=== PATIENT | male | born 1955 | race Caucasian/White ===

== ENCOUNTER 2016-06-29 10:30 | Day surgery (SDC) | payer BC, OTHER ==
[~2016-06-29 10:30] MED LIST: CHONDR SU A NA/HYALUR INTRAOC KIT (SURGICARE) ONE; KETOROLAC TROMETHAMINE 0.45% 4 DROP/0.4 ML DROPERETTE OD PRN; LIDOCAINE 1% INJ-PF (10 MG/ML) 30 ML SDV ONE; MIDAZOLAM 2 MG/2 ML INJ ONE; PHENYLEPHRINE/KETOROLAC 1%-0.3% 4 ML VIAL ONE; TRYPAN BLUE 0.06 % OPH SOLN 0.5 ML DISP.SYRIN ONE
[2016-06-29] MEDS: TROPICAMIDE 1% OPH SOLN 3 ML OD PRN ×3 (10:56→11:17)
[2016-06-29] MEDS: BESIFLOXACIN HCL 0.6% OPH SUSP 5 ML BOTTLE OD PRN ×4 (10:56→12:40)
[2016-06-29] MEDS: CYCLOPENTOLATE 0.2%/PHENYLEPHRINE 1% OPH SOLN 2 ML OD PRN ×3 (10:56→11:17)
[2016-06-29] MEDS: TETRACAINE HCL 0.5% OPH SOLN 2 ML OD PRN ×3 (10:57→11:58)
--- NOTE | 2016-06-29 19:08 | [facility] OPERATIVE REPORT E ---
[facility] Operative Report NAME: SAMMIE NEWMAN AGE: 61Y DATE OF SURGERY: 06/29/2016 ROOM: PREOPERATIVE DIAGNOSIS: Age-related cataract of the right eye. POSTOPERATIVE DIAGNOSIS: Age-related cataract of the right eye. OPERATION: Complex cataract extraction with use of a Toric IOL and Trypan blue dye to stain the anterior capsule due to dense cortical spoking. SURGEON: TACOS PIÑA M.D. ANESTHESIA: Topical. PROCEDURE: After obtaining appropriate consent, the patient's right eye was prepped and draped in sterile fashion as well as the surgeon in a sterile manner and cataract surgery was started. First a paracentesis blade was used to make a small side-port incision. Viscoelastic was used to inflate the anterior chamber. Next a 2.4 mm incision was made with the paracentesis blade. A continuous capsulorrhexis incision was made using a cystotome and Utrata forceps. Following this hydrodissection was carried out to make the lens fully loose and mobile and it was rotated 90 degrees. Following this, a nozocz-wqk-trffbra technique was used to phacoemulsification the lens with a CDE of 12.67. The remaining cortex was removed with irrigation/aspiration. Provisc was instilled into the capsular bag to inflate the bag. A SN6AT4, 15.5 diopter lens rotated to 5 [address] was [address]. The remaining viscoelastic material was removed with irrigation/aspiration. Following this, a 10-0 nylon suture was used to close the incision and it was found to be watertight. Vigamox was instilled in the eye and a protective shield was placed over the eye. The patient returned to the postoperative recovery in stable condition. ADDENDUM: Prior to making to capsulorhexis, Trypan blue dye was instilled to stain the anterior capsule due to dense cortical spoking. Prior to the patient lying on the operating room table, the 0 to 180 degree axis was marked with a corneal marker. Prior to insertion of the lens, the 5-degree axis was marked with a corneal marker. The lens was injected into the proper alignment at the 5-degree vishnu. DICTATING PHYSICIAN: TACOS PIÑA M.D. [id number] PHY#: [id number] ID: [id number] JOB#: [id number] ACCT: [id number] cc:TACOS PIÑA M.D. >
--- NOTE | 2016-06-29 19:08 | DISCHARGE SUMMARY E ---
Discharge Summary NAME: SAMMIE NEWMAN : 1955 AGE: 61Y ADMITTED: 06/29/2016 DISCHARGED: HISTORY AND HOSPITAL COURSE: This is a 61-year-old male who underwent complex cataract extraction with insertion of a Toric IOL. Diagnosis one is age-related cataract of the right eye with dense cortical spoking requiring Trypan blue dye. He is to maintain a regular diet. No bending at his waist. No heavy lifting. He underwent surgery because he was having trouble seeing road signs and making it difficult to drive at night. He should use his Besivance, Ilevro, and Durezol at 3:00 p.m. and 8:00 p.m. with sleep with a rigid shield, and I will see him for his 1-day postoperative visit tomorrow. DICTATING PHYSICIAN: TACOS PIÑA M.D. [id number] PHY#: [id number] ID: [id number] JOB#: [id number] ACCT: [id number] cc:TACOS PIÑA M.D. > MTDD
== END 2016-06-29 13:29 | disposition home or self-care (01) ==
LOC: SC 10:30
PROVIDERS: ATTEND Internal Medicine
PROC: 08RJ3JZ Replacement of Right Lens with Synthetic Substitute, Percutaneous Approach (ICD-10-PCS; principal; 2016-06-29 11:30)
DX: H25.13 Age-related nuclear cataract, bilateral (principal); H57.03 Miosis; H40.053 Ocular hypertension, bilateral; E11.9 Type 2 diabetes mellitus without complications; Z87.891 Personal history of nicotine dependence; Z79.4 Long term (current) use of insulin
CPT/HCPCS: 66982; 82962; V2632; J2250; J3490 ×3; C9447; 142

== ENCOUNTER 2016-07-20 08:47 | Day surgery (SDC) | payer OTHER ==
[~2016-07-20 08:47] MED LIST changes: -KETOROLAC TROMETHAMINE 0.45% 4 DROP/0.4 ML DROPERETTE OD PRN; +KETOROLAC TROMETHAMINE 0.45% 4 DROP/0.4 ML DROPERETTE OS PRN; -MIDAZOLAM 2 MG/2 ML INJ ONE
[2016-07-20] MEDS ORDERED: FENTANYL CITRATE INJ/PF 100 MCG/2 ML AMPUL ONE (09:05)
[2016-07-20] MEDS ORDERED: MIDAZOLAM 2 MG/2 ML INJ ONE (09:05)
[2016-07-20] MEDS ORDERED: ONDANSETRON HCL INJ/PF 4 MG/2 ML SDV ONE (09:05)
[2016-07-20] MEDS: TROPICAMIDE 1% OPH SOLN 3 ML OS PRN ×3 (09:16→09:39)
[2016-07-20] MEDS: CYCLOPENTOLATE 0.2%/PHENYLEPHRINE 1% OPH SOLN 2 ML OS PRN ×3 (09:17→09:40)
[2016-07-20] MEDS: BESIFLOXACIN HCL 0.6% OPH SUSP 5 ML BOTTLE OS PRN ×4 (09:19→10:22)
[2016-07-20] MEDS ORDERED: DEXTROSE 50%-WATER 25 GM/50 ML DISP.SYRIN IV ONE (09:20)
[2016-07-20] MEDS: TETRACAINE HCL 0.5% OPH SOLN 2 ML OS PRN ×3 (09:20→09:51)
--- NOTE | 2016-07-20 13:23 | [facility] OPERATIVE REPORT E ---
[facility] Operative Report NAME: SAMMIE NEWMAN AGE: 61Y DATE OF SURGERY: 07/20/2016 ROOM: PREOPERATIVE DIAGNOSIS: CATARACT, LEFT EYE.. POSTOPERATIVE DIAGNOSIS: CATARACT, LEFT EYE. OPERATION: Cataract extraction with Toric IOL of the left eye. SURGEON: TACOS PIÑA M.D. ANESTHESIA: Topical. PROCEDURE: After obtaining appropriate consent, the patient's left eye was prepped and draped in sterile fashion as well as the surgeon in a sterile manner and cataract surgery was started. First a paracentesis blade was used to make a small side-port incision. Viscoelastic was used to inflate the anterior chamber. Next a 2.4 mm incision was made with the paracentesis blade. A continuous capsulorrhexis incision was made using a cystotome and Utrata forceps. Following this hydrodissection was carried out to make the lens fully loose and mobile and it was rotated 90 degrees. Following this, a iqwnxz-kti-vmvwcmt technique was used to phacoemulsify the lens with a CDE of 5.85. The remaining cortex was removed with irrigation/aspiration. Provisc was instilled into the capsular bag to inflate the bag. A SN6AT4, 13.0 diopter lens, rotated to 170 [address] was [address]. The remaining viscoelastic material was removed with irrigation/aspiration. Following this, a 10-0 nylon suture was used to close the incision and it was found to be watertight. Vigamox was instilled in the eye and a protective shield was placed over the eye. The patient returned to the postoperative recovery in stable condition. DICTATING PHYSICIAN: TACOS PIÑA M.D. [id number] PHY#: [id number] ID: [id number] JOB#: [id number] ACCT: [id number] cc:TACOS PIÑA M.D. >
--- NOTE | 2016-07-20 13:28 | [facility] DISCHARGE SUMMARY E ---
[facility] Discharge Summary NAME: SAMMIE NEWMAN AGE: 61Y ADMITTED: 07/20/2016 DISCHARGED: 07/20/2016 HISTORY: This is a 61-year-old male who underwent cataract extraction of the left eye. DIAGNOSIS: Cataract, left eye, with insertion of a Toric IOL. DISPOSITION: He is to be on a regular diet. No bending at his waist. No heavy lifting. He should use his Besivance, Ilevro, and Durezol at 3:00 p.m. and 8:00 p.m. and sleep with a rigid shield, and I will see him for his 1-day postoperative tomorrow. He underwent surgery because he was having difficulty driving at night secondary to glare. DICTATING PHYSICIAN: TACOS PIÑA M.D. [id number] PHY#: [id number] ID: [id number] JOB#: [id number] ACCT: [id number] cc:TACOS PIÑA M.D. >
== END 2016-07-20 11:19 | disposition home or self-care (01) ==
LOC: SC 08:47
PROVIDERS: ATTEND Internal Medicine
PROC: 08RK3JZ Replacement of Left Lens with Synthetic Substitute, Percutaneous Approach (ICD-10-PCS; principal; 2016-07-20 10:00)
DX: H25.12 Age-related nuclear cataract, left eye (principal); H57.03 Miosis; H40.89 Other specified glaucoma; Z96.1 Presence of intraocular lens; E11.9 Type 2 diabetes mellitus without complications; Z79.4 Long term (current) use of insulin; Z87.891 Personal history of nicotine dependence
CPT/HCPCS: 66984; 82962; V2632; J2250; J3490 ×4; J3010; J2405; C9447; 142